=== PATIENT | male | born 1960 | race Caucasian/White ===

== ENCOUNTER 2017-07-10 06:27 | Day surgery (SDC) | payer OTHER ==
[~2017-07-10] VITALS: Ht 170.2 cm; Wt 86.4 kg
[~2017-07-10 06:27] MED LIST: MINO2.5 PO; SUCR1TAB PO; VERA240SR PO
[2017-07-10] MEDS ORDERED: ALBUTEROL SULFATE 2.5 MG/0.5 ML NEB SOLUTION NEB ONE (06:28)
[2017-07-10] MEDS ORDERED: LIDOCAINE HCL 4% 50 ML SOLUTION TP ONE (06:28)
[2017-07-10] MEDS ORDERED: BENZOCAINE 20% 50 MCG/SPRAY 57 GM TP ONE (06:28)
[2017-07-10] MEDS ORDERED: LIDOCAINE HCL 2% 30 ML JELLY TP ONE (06:28)
[2017-07-10] MEDS ORDERED: SODIUM CHLORIDE 0.9% 1,000 ML IV ONE ×2 (06:30→06:37)
[2017-07-10] MEDS ORDERED: MIDAZOLAM HCL 2 MG/2 ML VIAL ONE (08:04)
[2017-07-10] MEDS ORDERED: FentaNYL CITRATE-PF 100 MCG/2 ML VIAL ONE (08:05)
[2017-07-10] MEDS ORDERED: MethylPREDNISolone SOD SUCC 125 MG/2 ML VIAL IVP ONE (08:45)
[2017-07-10] MEDS ORDERED: MethylPREDNISolone SOD SUCC 125 MG/2 ML VIAL ONE (08:52)
[2017-07-10] MEDS ORDERED: OXYGEN THERAPY IH SCH (20:00)
== END 2017-07-10 09:50 | disposition home or self-care (01) ==
LOC: SURGERY 06:27
PROVIDERS: ATTEND Internal Medicine Critical Care Medicine
DX: J38.4 Edema of larynx (principal); R05 Cough; G47.30 Sleep apnea, unspecified; I10 Essential (primary) hypertension; R91.1 Solitary pulmonary nodule; K21.9 Gastro-esophageal reflux disease without esophagitis; B37.0 Candidal stomatitis; Z79.899 Other long term (current) drug therapy; Z87.891 Personal history of nicotine dependence; Z90.49 Acquired absence of other specified parts of digestive tract; Z88.8 Allergy status to other drugs, medicaments and biological substances
CPT/HCPCS: 31623; 31624; 71045; 87015; 87070; 87101; 87205; 87206; 87220; 88108; 88312; 94640; J2250; J2930; J3010; J7030

== ENCOUNTER 2019-02-11 06:00 | Day surgery (SDC) | payer OTHER ==
[~2019-02-11] VITALS: Ht 166.4 cm; Wt 90.9 kg
[~2019-02-11 06:00] MED LIST changes: +SODIUM CHLORIDE 0.9% 1,000 ML ONE
[2019-02-11] MEDS ORDERED: BENZOCAINE 20% 50 MCG/SPRAY 57 GM TP ONE (06:01)
[2019-02-11] MEDS ORDERED: LIDOCAINE 4% 50 ML SOLUTION TP ONE (06:01)
[2019-02-11] MEDS ORDERED: LIDOCAINE 2% 30 ML JELLY TP ONE (06:01)
[2019-02-11] MEDS ORDERED: ALBUTEROL SULFATE 2.5 MG/0.5 ML NEB SOLUTION NEB ONE (06:01)
[2019-02-11] MEDS ORDERED: SODIUM CHLORIDE 0.9% 1,000 ML IV ONE (06:30)
[2019-02-11] MEDS ORDERED: HYDR25TA PO (06:59)
[2019-02-11] MEDS ORDERED: PANT40TA25 PO (06:59)
[2019-02-11] MEDS ORDERED: FentaNYL CITRATE-PF 100 MCG/2 ML VIAL ONE (07:05)
[2019-02-11] MEDS ORDERED: MIDAZOLAM HCL 2 MG/2 ML VIAL ONE (07:05)
[2019-02-11] MEDS ORDERED: MethylPREDNISolone SOD SUCC 125 MG/2 ML VIAL IVP ONE (08:45)
[2019-02-11] MEDS ORDERED: MethylPREDNISolone SOD SUCC 125 MG/2 ML VIAL ONE (09:00)
[2019-02-11] MEDS ORDERED: OXYGEN THERAPY IH SCH (20:00)
== END 2019-02-11 10:20 | disposition home or self-care (01) ==
LOC: SURGERY 06:00
PROVIDERS: ATTEND Internal Medicine Critical Care Medicine
DX: R05 Cough (principal); R91.1 Solitary pulmonary nodule; J34.89 Other specified disorders of nose and nasal sinuses; J98.8 Other specified respiratory disorders; B37.0 Candidal stomatitis; J38.4 Edema of larynx; Z79.899 Other long term (current) drug therapy
CPT/HCPCS: 31623; 31624; 71045; 87015; 87070; 87101; 87205; 87206; 87220; 88108; 88312; 93005; J2250; J2930; J3010; J7030

== ENCOUNTER 2021-11-06 06:13 | Day surgery (SDC) | payer OTHER ==
[~2021-11-06] VITALS: Ht 170.2 cm; Wt 84.0 kg
[~2021-11-06 06:13] MED LIST changes: -MINO2.5 PO; +PANT-31 PO; +RINGERS SOLUTION,LACTATED 1,000 ML IV ONE; +SODIUM CHLORIDE 0.9% 1,000 ML IV ONE; -SODIUM CHLORIDE 0.9% 1,000 ML ONE; +TAMS-13 PO; -VERA240SR PO
[2021-11-06] MEDS ORDERED: LIDOCAINE 2% 11 ML JELLY TP ONE (06:14)
[2021-11-06] MEDS ORDERED: LIDOCAINE 4% 50 ML SOLUTION TP ONE (06:14)
[2021-11-06] MEDS ORDERED: BENZOCAINE 20% 50 MCG/SPRAY 57 GM TP ONE (06:14)
[2021-11-06 06:46] LABS: COVID AG,FIA SOURCE NASAL SWAB
[2021-11-06] MEDS ORDERED: SODIUM CHLORIDE 0.9% 1,000 ML ONE (07:00)
[2021-11-06] MEDS ORDERED: FentaNYL CITRATE PF 100 MCG/2 ML VIAL ONE (07:35)
[2021-11-06] MEDS ORDERED: MIDAZOLAM HCL 5 MG/ML VIAL ONE (07:36)
[2021-11-06] MEDS ORDERED: MethylPREDNISolone SOD SUCC 125 MG/2 ML VIAL ONE (09:00)
[2021-11-06] MEDS ORDERED: MethylPREDNISolone SOD SUCC 125 MG/2 ML VIAL IVP ONE (09:30)
== END 2021-11-06 10:40 | disposition home or self-care (01) ==
LOC: SURGERY 06:13
PROVIDERS: ATTEND Internal Medicine Critical Care Medicine
DX: J38.4 Edema of larynx (principal); B37.0 Candidal stomatitis; Z87.891 Personal history of nicotine dependence; Z90.49 Acquired absence of other specified parts of digestive tract; Z79.899 Other long term (current) drug therapy; Z20.822 Contact with and (suspected) exposure to COVID-19
CPT/HCPCS: 31623; 87206; 87101; 87220; 87070; 88108; 88305; 88312; 87186; 31624; 71045; 87015; 87426; J3010; J2930; J2250; Q9967; J7030; C9803; Z7610